=== PATIENT | male | born 1930 | race Caucasian/White ===

== ENCOUNTER 2017-06-06 10:17 | Day surgery (SDC) | payer MEDICARE, BC ==
[2017-06-06] MEDS ORDERED: BUPIVACAINE HCL 0.25% MPF 10 ML SOL INFIL ONE (10:38)
[2017-06-06] MEDS ORDERED: DEXAMETHASONE SOD PHOS PF 10 MG/ML SOL IJ ONE (10:50)
[2017-06-06] MEDS: DEXAMETHASONE SOD PHOS PF 10 MG/ML SOL IJ ONE ×2 (10:58→11:04)
[2017-06-06 11:17] VITALS: BP 169/83; PULSE 72; RESP 18; TEMP 99.4; O2SAT 96
== END 2017-06-06 11:50 | disposition home or self-care (01) | DRG 552 ==
LOC: SURG 10:17
PROVIDERS: ATTEND Nurse Anesthetist, Certified Registered
DX: M48.062 Spinal stenosis, lumbar region with neurogenic claudication (principal)
CPT/HCPCS: J1100